=== PATIENT | female | born 1945 | race Caucasian/White ===

== ENCOUNTER → 2017-01-12 | Outpatient (CLI) | payer MEDICARE, BC ==
[~2017-01-12] MED LIST: FLEXERIL PO; IBUPROFEN800 MG PO; INDERAL60 MG PO; LORTAB 5/500 TA1 TA1 PO; PRAVACHOL80 MG PO; PREVACID SOLUTA30 M1 PO; ZESTRIL40 MG PO
--- NOTE | ~2017-01-12 | MY11 ---
[facility] A Service [facility] RADIOLOGY TEXT RESULTS PATIENT: AZIZA GONZALES LOCATION: [facility] : 41 UNIT #: [id number] AGE: [address]: Geoffrey Oconnell MD SEX: F ORDER DR: [id number] [facility] [address] [place], [place] [address] [id number] O MR#: [id number] Acc #: [id number] NAME: AZIZA GONZALES : 1945 SEX: F STUDY DATE/TIME: 01/12/2017 10:28 UNIT: [facility] ROOM: STUDY DESCRIPTION: MY Mammogram Screening Dig Nolan Attending Physician: Geoffrey Oconnell M.D. Referring Physician: Geoffrey Oconnell M.D. Ordering Physician: Geoffrey Oconnell M.D. Primary Care Physician: Simone Mccord M.D. MEDICAL IMAGING REPORT This report is preliminary unless electronic signature is present EXAM Digital screening mammogram, 01/12/2017, [facility]. HISTORY 71-year-old woman positive family history, sister in her 60s. Previous right breast biopsy. Annual screen. COMPARISON Mammograms date to 11/22/2005 with most recent 12/16/2015. FINDINGS Digital imaging of each breast was completed utilizing a two-view examination of each breast in craniocaudal and mediolateral-oblique projections. Review and interpretation of digital mammograms include a second review in conjunction with FDA-approved CAD device. There is a normal parenchymal presentation bilaterally consistent with the patient's age. There are no breast masses imaged and no parenchymal asymmetry is visualized. There are no suspicious microcalcifications and I see no focal architectural disturbance. IMPRESSION Negative screening digital mammogram. One-year followup recommended. Patients over the age of 40 are entered into a reminder system with target due date for the next mammogram. A result letter will also be sent to the patient. BIRADS: 1 Negative Dictated by... Bartolo Carvajal M.D. [facility] A Service [facility] RADIOLOGY TEXT RESULTS PATIENT: AZIZA GONZALES LOCATION: [facility] : 41 UNIT #: [id number] AGE: [address]: Geoffrey Oconnell MD SEX: F ORDER DR: THIS IS AN ELECTRONICALLY VERIFIED REPORT Bartolo Carvajal M.D. at 01/12/2017 12:53 PM Arthur TD: 01/12/2017 12:06 JOB #: [id number] MEDICAL IMAGING REPORT Page 1 of 1 COPY
== END | disposition home or self-care (01) ==
LOC: CWCC 10:06
DX: Z12.31 Encounter for screening mammogram for malignant neoplasm of breast (principal); Z80.3 Family history of malignant neoplasm of breast
CPT/HCPCS: G0202